=== PATIENT | male | born 1955 | race Hispanic/Latino ===

== ENCOUNTER 2019-01-04 05:50 | Day surgery (SDC) | payer OTHER ==
[2019-01-04] VITALS (7 sets, daily range): BP systolic 92–151; BP diastolic 50–89
[~2019-01-04] VITALS: Ht 175.3 cm; Wt 73.5 kg
[2019-01-04] MEDS ORDERED: SODIUM CHLORIDE 0.9% 1000ML 1,000 ML IV ONE (05:57)
[2019-01-04] MEDS ORDERED: CYAN-52 PO (06:32)
[2019-01-04] MEDS ORDERED: KRIL1CAP4 PO (06:32)
[2019-01-04] MEDS ORDERED: METF-444 PO (06:32)
[2019-01-04] MEDS ORDERED: CLOP75TA32 PO (06:32)
[2019-01-04] MEDS ORDERED: ATOR40TA71 PO (06:32)
[2019-01-04] MEDS ORDERED: GLIM4TAB5 PO (06:32)
[2019-01-04] MEDS ORDERED: GABA-531 PO (06:32)
[2019-01-04] MEDS ORDERED: LISI1TAB28 PO (06:32)
[2019-01-04] MEDS ORDERED: LIDOCAINE HCL 2% 20ML ONE (07:18)
[2019-01-04] MEDS ORDERED: PROPOFOL 10 MG/ML 20ML VIAL IV ONE (07:18)
[2019-01-04] MEDS ORDERED: PHENYLEPHRINE HCL 10 MG/ML 1ML VIAL IV ONE (07:28)
== END 2019-01-04 08:11 | disposition home or self-care (01) ==
LOC: DAH 05:50 → ENDO 05:50
PROVIDERS: ATTEND Internal Medicine
DX: Z12.11 Encounter for screening for malignant neoplasm of colon (principal); D12.3 Benign neoplasm of transverse colon; K63.89 Other specified diseases of intestine; K57.30 Diverticulosis of large intestine without perforation or abscess without bleeding; K64.0 First degree hemorrhoids; E78.5 Hyperlipidemia, unspecified; E11.9 Type 2 diabetes mellitus without complications; I10 Essential (primary) hypertension; Z86.010 Personal history of colon polyps; Z79.84 Long term (current) use of oral hypoglycemic drugs; Z79.899 Other long term (current) drug therapy; Z86.73 Personal history of transient ischemic attack (TIA), and cerebral infarction without residual deficits
CPT/HCPCS: 45385; 82948 ×2; 88305; A4215; A4221; A4222; A4223; A4606; A4615; A4663; J2370; J2704; J3490; J7030